=== PATIENT | male | born 1945 | race Caucasian/White ===

== ENCOUNTER 2017-01-08 11:16 | Emergency (ER) | payer MEDICARE ==
--- NOTE | 2017-01-08 12:26 | ERNOTE ---
Integumentary HPI - Narrative Date of Service: 01/08/17 - General Time Seen by Provider: 01/08/17 12:11 Source: patient Exam Limitations: no limitations - Immun/Allergies/Home Medications Immunizations: IMMUNIZATION HX Immunizations Up to Date Yes Allergies/Adverse Reactions: Allergies Allergy/AdvReac Type Severity Reaction Status Date / Time No Known Allergies Allergy Verified 01/08/17 11:24 Home Medications: HOME MEDICATIONS Ascorbic Acid [Vitamin C] 1,000 mg PO QPM 04/06/14 [Last Taken Unknown] Ascorbic Acid [Vitamin C] 1,500 mg PO QAM 04/06/14 [Last Taken Unknown] Aspirin [Aspirin Enteric Coated] 325 mg PO DAILY 04/06/14 [Last Taken Unknown] Carvedilol [Coreg] 50 mg PO BID 04/06/14 [Last Taken Unknown] Furosemide [Lasix] 80 mg PO BID 04/06/14 [Last Taken Unknown] Garlic 1,000 mg PO DAILY 04/06/14 [Last Taken Unknown] HYDROcodone/ACETAMINOPHEN [Vicodin 5-325] 1 - 2 tab PO Q6H PRN 04/06/14 [Last Taken Unknown] Insulin Glargine,Hum.rec.anlog [Lantus] 100 unit SQ DAILY 04/06/14 [Last Taken Unknown] Levothyroxine Sodium [Synthroid] 112 mcg PO DAILY 04/06/14 [Last Taken Unknown] Magnesium Oxide [Mag-Ox 400] 800 mg PO BID 04/06/14 [Last Taken Unknown] Metolazone [Zaroxolyn] 5 mg PO DAILY@1100 04/06/14 [Last Taken Unknown] Multivitamins [Multivitamin Raad] 1 cap PO DAILY 04/06/14 [Last Taken Unknown] [place]-3 Fatty Acids/Fish Oil [Fish Oil 1,000 mg Capsule] 2 each PO BID 04/06/14 [Last Taken Unknown] Omeprazole [Prilosec] 20 mg PO DAILY 04/06/14 [Last Taken Unknown] Warfarin Sodium [Coumadin] 0 mg PO DAILY 04/06/14 [Last Taken Unknown] metFORMIN HCL [Glucophage] 1,000 mg PO BIDWM 04/06/14 [Last Taken Unknown] - History of Present Illness Narrative: Pt. comes in with c/o worsening redness and swelling in his thighs for three weeks. Pt. has been on multiple oral antibiotics by his PCP. Pt. states that he has had a fever recently but does not currently have one. Pt. also states that since he started this last course of antibiotics three days ago his L thigh has improved but the R thigh has worsened. Review of Systems - Review of Systems Constitutional: Present: recent illness, fever, chills, weakness, fatigue, malaise EYE: Present: no symptoms reported ENT: Present: no symptoms reported Respiratory: Present: no symptoms reported. Absent: shortness of breath, cough , wheezing Cardiology: Present: no symptoms reported. Absent: chest pain, palpitations, edema Gastrointestinal/Abdominal: Present: no symptoms reported. Absent: nausea, vomiting, diarrhea Genitourinary: Present: no symptoms reported Musculoskeletal: Present: no symptoms reported. Absent: back pain, joint pain Skin: Present: other - redness B thighs Neurological: Present: no symptoms reported. Absent: headache, dizziness/light- headedness, numbness, tingling All Other Systems: All systems neg except as marked - Patient's Past Medical History Patient History - Medical: Anemia, Diabetes Type 2 Insulin Dependent, GERD, Hypothyroidism, Renal Disease, Renal Failure, UTI'S, Other Patient History - Cardiac/Respiratory: Atrial Fibrillation, CHF, Hypertension, Hyperlipidemia Patient History - Cancer: Lymphoma Patient History - Surgical Procedures: Back Surgery, Cataracts, Cardiac stent, Hernia Repair Patient History - Other: None - Family History Mother Family History - Medical: Father Family History - Medical: - Social History Living Situations: home Abuse History: No History of abuse Psych History: No pertinent hx Alcohol Use: none Drug Use: none - Immunizations Immunizations Up to Date: Yes Physical Exam - Physical Exam General Appearance: Present: wd/wn, alert, no apparent distress Eye Exam: Normal inspection: bilateral, PERRL: bilateral, EOMI: bilateral Ears, Nose, Throat: Present: normal ENT inspection, normal pharynx Neck: Present: normal inspection, nontender. Absent: lymphadenopathy (R), lymphadenopathy (L) Respiratory: Present: no respiratory distress, no accessory muscle use, chest nontender, decreased breath sounds Cardiovascular/Chest: Present: regular rate, rhythm, no murmur, normal peripheral pulses Gastrointestinal/Abdominal: Present: normal bowel sounds, nontender, nondistended, soft, no organomegaly, other - obese Back Exam: Present: normal inspection, normal range of motion, no CVA tenderness , no vertebral tenderness Extremity Exam: Present: decreased range of motion, extremity edema - +2 BLE, other - hemosiderin staining and flaking skin BLERedness R upper leg 4 cm surrounding black johnathan Neurological Exam: Present: alert, oriented, normal mood/affect, other - BLE weakness pt. states is normal Skin Exam: Present: warm/dry, pallor ED Progress - Date and Time Seen: Date and Time: 01/08/17 13:51 Discussed case with Pt. PCP Dr Littel and he would like pt. to see ID doctor. Consulted with ID at [facility] and they recommend inpatient admission at [facility] for ID consult Discussed with Dr Kelsey at [facility] in the ER who accepts transfer. - Results and Orders Patient's Lab Results:: I have reviewed the patient's lab results. - Vital Signs Patient's Vital Signs:: I have reviewed the patient's vital signs. Vital Signs: Vital Signs 01/08/17 01/08/17 01/08/17 10:22 11:19 12:07 Temperature 36.1 C L 36.6 C Pulse Rate 79 78 Respiratory 16 14 Rate Blood Pressure 110/64 150/71 O2 Sat by Pulse 95 94 Oximetry - Progress/Reassessment Chief Complaint: Cellulitis Departure Clinical Impression: Cellulitis and abscess of leg, Infection - Departure Disposition: [facility] Condition: Fair
--- OUTSIDE RECORDS SUMMARY | 2017-01-08 12:32 | XMS REPORT | Continuity of Care Document ---
:1945 Author Organization [facility] ([facility]) Address [address] [place] [address] Phone [phone] Care Team Providers Name Role Phone Maurice Clay Primary Care Provider [phone] Source Comments This disclosure is being made pursuant to the Care Everywhere program, applicable federal and state laws, and may not contain all informaitonavailable regarding this patient.[facility] ([facility]) Active Allergies and Adverse Reactions No Known Allergies Current Medications Prescription Sig. Disp. Refills Start Date End Date Status multivitamin tablet Take 1 Tab by mouth Active daily. furosemide 80 mg Take 2 Tabs by mouth 120 Tab 11 01/13/2013 Active tablet 2 times daily. Indications: EDEMA, HYPERTENSION ascorbic acid 1500 mg AM and 1000 Active (VITAMIN C) 500 mg mg PM tablet garlic 1,000 mg Take 1 Cap by mouth Active capsule daily. omeprazole 20 mg Take 20 mg by mouth Active extended release daily. capsule omega-3 fatty Take 1,000 mg by Active acids-vitamin E (FISH mouth 2 times daily OIL) 1,000 mg capsule spironolactone 25 mg Take 1 Tab by mouth 90 Tab 4 06/14/2014 Active tablet Every morning. Indications: CHRONIC HEART FAILURE, EDEMA DUE TO NEPHROTIC SYNDROME levothyroxine 112 mcg Take 112 mcg by Active tablet mouth every morning before breakfast metolazone 5 mg Take 5 mg by mouth Active tablet every 48 hours insulin aspart Inject 30 Units Active (NovoLOG) 100 unit/mL subcutaneously 3 injection vial times daily before meals warfarin PO Take 7 mg by mouth Active daily. potassium chloride 10 Take 10 mEq by mouth Active mEq XR tablet daily. docusate 100 mg Take 200 mg by mouth Active capsule 2 times daily HYDROcodone-acetamino Take 2 tablets by Active phen 5-325 mg per mouth at bedtime as tablet needed. insulin detemir Inject 50 Units Active (LEVEMIR) 100 unit/mL subcutaneously 2 injection vial times daily ferrous sulfate Take 325 mg by mouth Active (Iron) 325 mg (65 mg daily iron) tablet atorvastatin 40 mg Take 40 mg by mouth Active tablet every evening aspirin 81 mg EC Take 1 tablet (81 mg 30 tablet 11 04/02/2016 Active tablet total) by mouth daily. cyanocobalamin Take 1,000 mcg by Active (VITAMIN B-12) 1,000 mouth every 48 mcg tablet hours. cholecalciferol Take 1,000 Units by Active (VITAMIN D3) 1,000 mouth daily. unit tablet polyethylene glycol Take 34 g by mouth Active 3350 (MIRALAX) 17 daily as needed. gram/dose powder metoPROLol tartrate Take 50 mg by mouth Active 50 mg tablet 2 times daily. calcitriol 0.25 mcg Take 0.25 mcg by Active capsule mouth 3 times weekly. isosorbide Take 90 mg by mouth Active mononitrate 60 mg CR every morning. tablet nitroglycerin 0.[address] 0.4 mg under Active SL tablet the tongue every 5 minutes as needed. Maximum of 3 tablets in 15 minutes. Active Problems Problem Noted Date Atrial flutter 04/02/2016 detention current use of anticoagulants with INR goal of 2.0-3.0 04/02/2016 S/P angioplasty with stent 05/11/2015 Coronary artery disease without angina pectoris 05/11/2015 Coronary artery disease with angina pectoris 03/15/2015 Abnormal nuclear stress test 03/05/2015 Abnormal nuclear cardiac imaging test 03/05/2015 Typical atrial flutter 02/05/2015 Proliferative diabetic retinopathy 06/29/2014 Overview: IMO Update Diabetes mellitus 06/29/2014 Diabetic macular edema 06/29/2014 Overview: Formatting of this note may be different from the original. Right Eye Left Eye Time To Recurrence: Time To Recurrence: Date VA (D cc) CMT Status Procedure VA (D cc) CMT Status Procedure Cmts 06/29/2014 20/40 20/400 ecc [facility] 0.3 [id number] 07/13/2014 20/40 cc HM @ 4' ecc cc PRP OS 02/14/2015 20/40 cc 20/150 cc [facility] Lot [id number] IMO Update Systolic and diastolic CHF, acute 08/12/2013 Edema 08/05/2013 Anemia 08/05/2013 MGUS (monoclonal gammopathy of unknown significance) 05/26/2013 Marginal zone lymphoma 05/26/2013 Nephrotic range proteinuria 11/18/2012 CKD (chronic kidney disease) stage 3, GFR 30-59 ml/min 11/18/2012 Obesity, Class III, BMI 40-49.9 (morbid obesity) 11/18/2012 Anemia of chronic kidney failure 11/18/2012 Hyperlipidemia LDL goal < 70 11/18/2012 DM type 2 (diabetes mellitus, type 2) 11/18/2012 Diabetic retinopathy 11/18/2012 Diabetic nephropathy 11/18/2012 Volume overload 11/18/2012 Hypertension 11/18/2012 Resolved Problems Problem Noted Date Resolved Date Chest discomfort 08/05/2013 08/05/2013 SOB (shortness of breath) 08/05/2013 08/12/2013 Immunizations Name Dates Previously Given Next Due Influenza, quadrivalent PF 04/29/2013 Influenza, unspecified 05/05/2012 Social History Tobacco Use Types Packs/Day Years Used Date Former Smoker Cigarettes 1 20 Quit: 07/27/2008 Smokeless Tobacco: Never Used Tobacco Cessation:Counseling Given: Yes Comments: Alcohol Use Drinks/Week oz/Week Comments No Last Filed Vital Signs Vital Sign Reading Time Taken Blood Pressure 195/77 10/02/2016 2:46 PM GREETER Pulse 77 10/02/2016 2:46 PM GREETER Temperature 36.6 C (97.9 F) 05/14/2015 9:14 AM CDT Respiratory Rate 24 05/14/2015 9:14 AM CDT Height 1.854 m (6' 0.99") 10/02/2016 2:46 PM GREETER Weight 134.2 kg (295 lb 13.7 oz) 10/02/2016 2:46 PM GREETER Body Mass Index 39.04 10/02/2016 2:46 PM GREETER Oxygen Saturation 90% 10/02/2016 2:46 PM GREETER Plan of Care Date Type Specialty Providers Description 03/31/2017 Appointment [facility] Chief Comp : Patient RMD Reported Reason For [address] [place] [address] [phone] (Fax) Health Maintenance Due Date Last Done Comments HCV Screening 1945 Hepatitis B Vaccine (1 of 3 - Primary 1945 Series) Tdap Vaccine 1956 DIABETIC: Microalbumin 1963 Td Vaccine 1963 Colonoscopy 11/13/1996 Zoster Vaccine 2006 Pneumococcal Vaccine (1 of 2 - PCV13) 11/15/2011 DIABETIC: Foot Exam 02/16/2013 DIABETIC: Retinal Eye Exam 05/24/2013 05/24/2012, 05/24/2012 DIABETIC: Hemoglobin A1C 02/07/2014 08/10/2013 DIABETIC: Cholesterol 08/10/2014 08/10/2013 Diabetic: Hdl 08/10/2014 08/10/2013 Diabetic: Ldl 08/10/2014 08/10/2013 DIABETIC: Triglycerides 08/10/2014 08/10/2013 Influenza Vaccine: Seasonal (Season Ended) 2017 04/29/2013, 05/05/2012 Results from Last 3 Months Not on file
[2017-01-08 12:37] LABS: Hematocrit 32.8 % (42.0-52.0); Hemoglobin 10.6 gm/dL (13.5-18.0); Mean Cell Volume 90.6 fl (78-100); Mean Corpuscular Hemoglobin 29.3 pg (27-31); Mean Corpuscular Hgb Conc 32.3 g/dl (32-36); Mean Platelet Volume 9.1 fl (6.0-9.5); Neutrophil % 74.6 % (42-75.0); Platelet Count 276 K/mm3 (150-450); Red Blood Count 3.62 M/mm3 (4.7-6.0); White Blood Count 13.4 K/mm3 (4.0-10.5)
[2017-01-08 12:46] LABS: Urine Bilirubin Negative (NEGATIVE); Urine Blood 50 /ul (NEGATIVE); Urine Ketone Negative (NEGATIVE); Urine Nitrite Negative (NEGATIVE); Urine Protein >=300 mg/dL (NEGATIVE); Urine Urobilinogen Normal (NORMAL)
[2017-01-08 12:51] LABS: Urine Appearance Slightly Cloudy; Urine Color Yellow
[2017-01-08 12:52] LABS: Urine Bacteria 1+; Urine Coarse Granular Cast 0-5 /LPF; Urine Hyaline Cast 0-5 /LPF; Urine RBC None Seen /hpf (0-5); Urine WBC 0-5 /hpf (0-5)
[2017-01-08 12:56] LABS: Albumin * 2.3 gm/dl (3.4-5.0); Anion Gap 12.8 mmol/L (6.8-13.8); BUN/Creatinine Ratio 7.9 (9.0-21.6); Bilirubin, Total 0.5 mg/dL (0.0-1.1); CRP 2.5 mg/dL (0.0-0.9); Ca. Corrected For Albumin 9.5 mg/dL (8.4-10.2); Calcium * 8.5 mg/dL (7.9-10.9); Carbon Dioxide 29.3 mmol/L (24-32.6); Potassium 4.1 mmol/L (3.4-4.6); Total Protein 7.1 gm/dL (6.2-8.2)
[2017-01-08 14:21] VITALS: BP 139/61
== END 2017-01-08 14:20 | disposition short-term general hospital (02) ==
LOC: ER 11:16
DX: L03.116 Cellulitis of left lower limb (principal); L03.115 Cellulitis of right lower limb; L02.416 Cutaneous abscess of left lower limb